=== PATIENT | female | born 1970 | race Caucasian/White ===

== ENCOUNTER → 2016-12-18 | Outpatient (CLI) | payer BC | LOC: FIMAGING 08:32 | PROVIDERS: ATTEND Physician Assistant | DX: M54.6 Pain in thoracic spine (principal); M54.2 Cervicalgia; M54.5 Low back pain; M25.519 Pain in unspecified shoulder; M25.579 Pain in unspecified ankle and joints of unspecified foot; M25.562 Pain in left knee; Z95.1 Presence of aortocoronary bypass graft; Z98.890 Other specified postprocedural states | CPT/HCPCS: 78306; A9503 ==

== ENCOUNTER → 2017-02-14 | Outpatient (CLI) | payer BC ==
[~2017-02-14] MED LIST: GADOBUTROL 10 ML VIAL IVP ONE
== END ==
LOC: FIMAGING 08:50
PROVIDERS: ATTEND Physician Assistant
DX: G51.9 Disorder of facial nerve, unspecified (principal); R93.8 Abnormal findings on diagnostic imaging of other specified body structures
CPT/HCPCS: A9585

== ENCOUNTER → 2018-07-07 | Outpatient (CLI) | payer BC | LOC: FIMAGING 16:06 | PROVIDERS: ATTEND Family Medicine | DX: Z12.31 Encounter for screening mammogram for malignant neoplasm of breast (principal) ==

== ENCOUNTER → 2018-08-13 | Outpatient (CLI) | payer BC | LOC: FIMAGING 10:08 | PROVIDERS: ATTEND Physician Assistant | DX: G51.32 Clonic hemifacial spasm, left (principal); I66.3 Occlusion and stenosis of cerebellar arteries; Z87.820 Personal history of traumatic brain injury | CPT/HCPCS: A9585 ==

== ENCOUNTER → 2018-09-30 | Outpatient (CLI) | payer BC | LOC: FIMAGING 09:48 | PROVIDERS: ATTEND Physician Assistant | DX: G51.32 Clonic hemifacial spasm, left (principal); Z95.828 Presence of other vascular implants and grafts | CPT/HCPCS: 82565-PO; A9585 ==